=== PATIENT | female | born 1940 | race Caucasian/White ===

== ENCOUNTER 2020-02-06 07:00 | Outpatient (CLI) | payer SELFPAY | END 2020-02-06 23:59 | disposition home or self-care (01) | LOC: COV 07:00 | PROVIDERS: ATTEND Family Medicine | DX: Z20.828 Contact with and (suspected) exposure to other viral communicable diseases (principal) ==

== ENCOUNTER 2022-03-24 10:41 | Outpatient (CLI) | payer MEDICARE, OTHER ==
[2022-03-24 11:32] VITALS: BP 110/62
--- NOTE | 2022-03-24 11:32 | SLEEP CARE CONSULTATION ---
Information from patient questionnaire entered by Loren Carrero. I have reviewed and concur with the information entered by Loren Carrero. This document represents the service I personally performed and the decisions made by me, Mayi Trotter ARNP. History of Present Illness Service Date and Time: 03/24/2022 1041 Previous diagnosis: Moderate, Obstructive Sleep Apnea-Hypopnea Syndrome AHI: 29.4 (in 2021) Reason for follow up: first compliance Accompanied by: Spouse (Jason) Equipment type: CPAP (RESMED) Equipment obtained from: Other ([facility]; getting supplies) Mask style: Nasal Mask brand: Respironics (Dreamwear) Backup mask available: Yes (other mask; full face - created sore on top of nose) Prior sleep studies: Yes Type of Sleep Study: Polysomnography (F/U POLY, 11/26/2021, POS) HPI additional information: CHARITY AYON was diagnosed to have moderate, AHI 29.4, obstructive sleep apnea- hypopnea syndrome and returned today for CPAP therapy first compliance follow- up. Sleep Study - Results Type of Sleep Study: Polysomnography (F/U POLY, 11/26/2021, POS) Prior sleep studies: Yes CPAP Compliance Data - Data Reviewed with Patient Average duration of nightly device use: 5 hours 42 mins Compliance rate %: 73 (30/30 days used) Current pressure setting (cmH2O): 4-15 (median 10.0, avg 12.6, max 13.5) Average residual AHI: 4.1 Central apnea: 0.8 Obstructive apnea: 0.8 Average large leak: 5.0 lpm Subjective Missed days of use due to: reports: mask issues Patient concerns: reports: mask discomfort, mask leak noise, dry mouth, nose, throat. denies: aerophagia, air blowing in eyes, condensation in mask/hose, nasal congestion, epistaxis Observed to snore while using device: No Current pressure setting perceived as: too high On therapy, patient: reports: sleeping better, being more awake and alert during the day. denies: drowsiness while driving Initial [place] Sleepiness Scale score: 7 (11/20/2021) Current [place] Sleepiness Scale score: 6 (03/24/2022) Allergies and Home Medications Drug allergies reviewed: Yes (flagyl) Home medication list reviewed: Yes (no changes) Review of Systems Review of systems same as previous: Yes (no changes) Physical Exam Vital signs obtained and entered by: LOREN Amezquita MA Blood Pressure: 110/62 Heart Rate: 78 O2 Saturation: 95 Height: 4 ft 11 in Weight: 146 lb Body Mass Index: 29.5 BMI Classification: Overweight Impression and Plan 1. Obstructive Sleep Apnea-Hypopnea Syndrome, moderate, with good treatment compliance and good apnea control. On CPAP therapy, the patient has better sleep quality and is more rested overall. Patient has tried full face mask like the ResMed F20 but it caused a sore on the bridge of her nose. She switched to a nasal cushion but was not able to keep her mouth from opening. She would get a very dry mouth. She has tried a chin strap with the nasal cushion mask for a couple of nights. I advised her that she could try a hybrid full face mask and she thinks she may have one. She will continue to try to find a good fitting mask. The patients pressure will be changed to autoCPAP 10-12 cmH20 to reflect pressures being used. Patient advised to contact me if pressure change is uncomfortable so that it can be adjusted. Goals for apnea control discussed. Patient's apnea severity and rationale for treatment to reduce apnea, improve sleep quality and reduce cardiovascular and cerebrovascular events was reviewed. I also reviewed the benefit of consistent device use of CPAP for hypertension and anxiety. 2. Obesity, unspecified. Currently patients BMI is 29.5. Obesity increases the risk of apnea, CPAP pressure requirements and overall health risks especially cardiovascular and diabetes. Thus patient is advised to lose weight. * Change auto CPAP pressure to 10-12 cmH2O * Notify me if snoring with mask or feeling that the pressure is too much or too little * Attempt to lose weight * Call this office if any problems using CPAP * Return for follow up in 1-2 months, or sooner if concerns arise Counseling Topics: Spare mask, Weight loss health impact Visit Type: In Office Other Participants: Spouse/Significant Other Time Spent with Patient (minutes): 23 Provider Statement: I spent 100% of the Face to Face Visit with the patient with greater than 50% spent counseling the patient and coordination of care.
== END 2022-03-24 10:42 | disposition home or self-care (01) ==
LOC: SC 10:41
PROVIDERS: ATTEND Nurse Practitioner Family
DX: G47.33 Obstructive sleep apnea (adult) (pediatric) (principal); E66.9 Obesity, unspecified; Z68.29 Body mass index [BMI] 29.0-29.9, adult
CPT/HCPCS: 99213; G0463; 99212

== ENCOUNTER 2022-07-28 11:04 | Outpatient (CLI) | payer MEDICARE, OTHER ==
[2022-07-28 11:46] VITALS: BP 138/74
--- NOTE | 2022-07-28 11:46 | SLEEP CARE CONSULTATION ---
Information from patient questionnaire entered by Loren Carrero. I have reviewed and concur with the information entered by Loren Carrero. This document represents the service I personally performed and the decisions made by me, Mayi Trotter ARNP. History of Present Illness Service Date and Time: 07/28/2022 1104 Previous diagnosis: Moderate, Obstructive Sleep Apnea-Hypopnea Syndrome AHI: 29.4 (in 2021) Reason for follow up: three month Equipment type: CPAP (RESMED Airsense 11, s/u 01/2022) Equipment obtained from: Other ([facility]; getting supplies) Mask style: Full face Mask brand: Resmed (AirTouch F20) Backup mask available: Yes (other mask) Last cushion change: 3 nights Prior sleep studies: Yes Type of Sleep Study: Polysomnography (F/U POLY, 11/26/2021, POS) HPI additional information: JOIE AYON was diagnosed to have moderate, AHI 29.4, obstructive sleep apnea- hypopnea syndrome and returned today for CPAP therapy three month follow-up. Sleep Study - Results Type of Sleep Study: Polysomnography (F/U POLY, 11/26/2021, POS) Prior sleep studies: Yes CPAP Compliance Data - Data Reviewed with Patient Average duration of nightly device use: 6 HRS 44 MINS Compliance rate %: 87 (04/27/22-07/25/22; 90/90 days used) Current pressure setting (cmH2O): 10-12 Average residual AHI: 2.5 Central apnea: 0.3 Obstructive apnea: 0.2 Hypopnea: 1.9 Average large leak: 1.0 lpm Subjective Patient concerns: reports: mask discomfort (changing mask as needed), mask leak noise (best if on her back), dry mouth, nose, throat (using full face mask now or chin strap with nasal cushion). denies: aerophagia, air blowing in eyes, condensation in mask/hose, nasal congestion, epistaxis Observed to snore while using device: No Current pressure setting perceived as: comfortable On therapy, patient: reports: sleeping better, awakening more refreshed, being more awake and alert during the day, more rested overall. denies: drowsiness while driving Initial [place] Sleepiness Scale score: 7 (11/20/2021) Current [place] Sleepiness Scale score: 4 (07/28/22) Allergies and Home Medications Known drug allergies: Yes (Flagyl) Drug allergies reviewed: Yes Home medication list reviewed: Yes (no changes) Review of Systems Review of systems same as previous: No (Laser surgery on Left eye for glaucoma) Physical Exam Vital signs obtained and entered by: LOREN Amezquita MA Blood Pressure: 138/74 (LEFT ARM) Cuff size: regular Heart Rate: 76 O2 Saturation: 98 Height: 4 ft 11 in Weight: 147 lb 6.4 oz Body Mass Index: 29.7 BMI Classification: Overweight Impression and Plan 1. Obstructive Sleep Apnea-Hypopnea Syndrome, moderate, with good treatment compliance and good apnea control. On CPAP therapy, the patient has better sleep quality and is more rested overall. She is using a full face mask with memory foam to reduce irritation on top of nose. She states it is still causing redness on her nose after using it for only 3 nights. She states she really likes her nasal cushion mask but could not keep her mouth closed and was getting dry mouth. I showed her a ResMed Airfit F30i mask that is a hybrid of nasal cushion and full face. She liked it and will talk to her DME about when she may try this mask. We will follow up with Joie in about 6 months. Patient's apnea severity and rationale for treatment to reduce apnea, improve sleep quality and reduce cardiovascular and cerebrovascular events was reviewed. I also reviewed the benefit of consistent device use of CPAP for hypertension and anxiety. 2. Overweight, unspecified. Currently patients BMI is 29.7. Obesity increases the risk of apnea, CPAP pressure requirements and overall health risks especially cardiovascular and diabetes. Thus patient is advised to lose weight. The patient's CPAP pressure range should accommodate some weight loss. * Continue auto CPAP pressure at 10-12 cmH2O * Notify me if snoring with mask or feeling that the pressure is too much or too little * Attempt to lose weight * Call this office if any problems using CPAP * Return for follow up in 6 months, or sooner if concerns arise Counseling Topics: Spare mask, Weight loss health impact Visit Type: In Office Time Spent with Patient (minutes): 21 Provider Statement: I spent 100% of the Face to Face Visit with the patient with greater than 50% spent counseling the patient and coordination of care.
== END 2022-07-28 11:05 | disposition home or self-care (01) ==
LOC: SC 11:04
PROVIDERS: ATTEND Nurse Practitioner Family
DX: G47.33 Obstructive sleep apnea (adult) (pediatric) (principal); E66.3 Overweight; Z68.29 Body mass index [BMI] 29.0-29.9, adult
CPT/HCPCS: 99213; G0463; 99212

== ENCOUNTER 2022-09-24 10:25 | Outpatient (CLI) | payer MEDICARE, OTHER ==
--- NOTE | 2022-09-24 13:05 | XRAY Report ---
PROCEDURE: Foot 3 View BILAT INDICATIONS: BL FOOT PAIN TECHNIQUE: 3 views of the bilateral feet were acquired. COMPARISON: None. FINDINGS: Bones: No fractures or dislocations. No suspicious bony lesions. Bilateral pes planus and promine nt hallux valgus and bunion. Bilateral first MTP degenerative change, moderately severe. There are ca lcifications medial to the distal heads of the first metatarsals. Gout is not excluded. There are geovany ntar calcaneal spurs as well as bilateral midfoot degenerative change. Soft tissues: No suspicious soft tissue calcifications or masses. IMPRESSION: 1. Bilateral pes planus, prominent hallux valgus and bunion. 2. 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 3. Question gout. 4. Plantar calcaneal spurring. 5. Midfoot degenerative arthritis. Reviewed by: Vj Valentino MD on 09/24/2022 1:04 PM PDT Approved by: Vj Valentino MD on 09/24/2022 1:04 PM PDT Station ID: [id number]
== END 2022-09-24 10:26 | disposition home or self-care (01) ==
LOC: DI 10:25
PROVIDERS: ATTEND Podiatrist
DX: M21.42 Flat foot [pes planus] (acquired), left foot (principal); M21.41 Flat foot [pes planus] (acquired), right foot; M20.12 Hallux valgus (acquired), left foot; M20.11 Hallux valgus (acquired), right foot; M21.612 Bunion of left foot; M21.611 Bunion of right foot; M19.072 Primary osteoarthritis, left ankle and foot; M19.071 Primary osteoarthritis, right ankle and foot; M77.32 Calcaneal spur, left foot; M77.31 Calcaneal spur, right foot

== ENCOUNTER 2023-01-27 10:59 | Outpatient (CLI) | payer MEDICARE, OTHER ==
--- NOTE | 2023-01-27 11:43 | Sleep Patient Instructions ---
Sleep Center Visit Summary - Patient Visit Information Reason for Visit: 6 month followup for PAP therapy - Patient Instructions Additional Instructions: You were here for follow up of CPAP therapy. You will be continued on CPAP therapy with pressure at 10-12 cmH2O. You should follow up with sleep care in 12 months. You may contact us sooner for any questions or concerns. - Clinic Information Contact: formerly [facility] [address] [place] [address] [email or web address] T: [phone]
--- NOTE | 2023-01-27 11:51 | SLEEP CARE CONSULTATION ---
Information from patient questionnaire entered by Robert Carrero. I have reviewed and concur with the information entered by Robert Carrero. This document represents the service I personally performed and the decisions made by , Mayi Trotter ARNP. History of Present Illness Service Date and Time: 01/27/2023 1059 Previous diagnosis: Moderate, Obstructive Sleep Apnea-Hypopnea Syndrome AHI: 29.4 (in 2021) Reason for follow up: six month (F/U) Equipment type: CPAP (RESMED Airsense 11, s/u 01/2022) Equipment obtained from: Other ([facility]; getting supplies) Mask style: Nasal Mask brand: Resmed (N30i) Backup mask available: Yes (other mask) Last cushion change: 3-4 weeks Prior sleep studies: Yes Type of Sleep Study: Polysomnography (F/U POLY, 11/26/2021, POS) HPI additional information: CHARITY AYON was diagnosed to have moderate, AHI 29.4, obstructive sleep apnea- hypopnea syndrome and returned today for CPAP therapy six month follow-up. Sleep Study - Results Type of Sleep Study: Polysomnography (F/U POLY, 11/26/2021, POS) Prior sleep studies: Yes CPAP Compliance Data - Data Reviewed with Patient Average duration of nightly device use: 7 HRS 3 MINS Compliance rate %: 96 (07/29/22-01/24/23; 179/180 days used) Current pressure setting (cmH2O): 10-12 Average residual AHI: 2.0 Central apnea: 1 Obstructive apnea: 0.6 Hypopnea: 0.4 Average large leak: 0.3 L/min Subjective Patient concerns: reports: dry mouth, nose, throat (occasionally; using chin strap with mask to reduce oral venting). denies: aerophagia, mask discomfort, air blowing in eyes, mask leak noise, condensation in mask/hose, nasal congestion, epistaxis Observed to snore while using device: No Current pressure setting perceived as: comfortable On therapy, patient: reports: sleeping better, awakening more refreshed, being more awake and alert during the day, more rested overall. denies: drowsiness while driving Initial [place] Sleepiness Scale score: 7 (11/20/2021) Current [place] Sleepiness Scale score: 5 (01/27/23) Allergies and Home Medications Known drug allergies: Yes (as listed) Drug allergies reviewed: Yes Home medication list reviewed: Yes (no changes) Allergy and home medication list: Allergies metronidazole [From Flagyl] Adverse Reaction (Verified 01/26/23 14:22) Cramps Review of Systems Review of systems same as previous: Yes (NO CHANGE) Physical Exam Vital signs obtained and entered by: ROBERT Amezquita MA Blood Pressure: 116/64 (LEFT ARM) Cuff size: regular Heart Rate: 70 O2 Saturation: 98 Height: 4 ft 11 in Weight: 144 lb 9.6 oz Body Mass Index: 29.2 BMI Classification: Overweight Impression and Plan 1. Obstructive Sleep Apnea-Hypopnea Syndrome, moderate, with good treatment compliance and good apnea control. On CPAP therapy, the patient has better sleep quality and is more rested overall. She has settled on a nasal cushion mask that she finds the most comfortable. She is using a chinstrap to keep her mouth closed but does not like it. I suggested she try mouth strip for snoring to keep mouth closed and she voiced understanding. Patient has significant improvement of their sleep apnea and is satisfied with current CPAP therapy. Patient denies problems with nasal congestion, epistaxis, skin irritation or aerophagia. Patient's apnea severity and rationale for treatment to reduce apnea, improve sleep quality and reduce cardiovascular and cerebrovascular events was reviewed. I also reviewed the benefit of consistent device use of CPAP for hypertension and anxiety. 2. Overweight, unspecified. Currently patients BMI is 29.2. Obesity increases the risk of apnea, CPAP pressure requirements and overall health risks especially cardiovascular and diabetes. Thus patient is advised to lose weight. * Continue auto CPAP pressure at 10-12 cmH2O * Notify me if snoring with mask or feeling that the pressure is too much or too little * Attempt to lose weight * Call this office if any problems using CPAP * Return for follow up in 1 year, or sooner if concerns arise Counseling Topics: Spare mask, Weight loss health impact Prescriptions: Device supplies Follow up with Sleep Care in: 1 year Visit Type: In Office Time Spent with Patient (minutes): 23 Provider Statement: I spent 100% of the Face to Face Visit with the patient with greater than 50% spent counseling the patient and coordination of care.
[2023-01-27 12:08] VITALS: BP 116/64; O2SAT 98
== END 2023-01-27 11:00 | disposition home or self-care (01) ==
LOC: SC 10:59
PROVIDERS: ATTEND Nurse Practitioner Family
DX: G47.33 Obstructive sleep apnea (adult) (pediatric) (principal); E66.3 Overweight; Z68.29 Body mass index [BMI] 29.0-29.9, adult
CPT/HCPCS: 99213; G0463; 99212

== ENCOUNTER 2023-12-13 06:30 | Outpatient (CLI) | payer MEDICARE, OTHER | END 2023-12-13 23:59 | disposition critical access hospital (66) | LOC: EMS 06:30 | DX: R07.89 Other chest pain (principal) | CPT/HCPCS: A0425; A0427 ==

== ENCOUNTER 2023-12-13 06:59 | Emergency (ER) | payer MEDICARE, OTHER ==
[2023-12-13 07:23] VITALS: O2SAT 98
[2023-12-13 07:30] LABS: BASOPHILS % (AUTO) 0.4 %; EOSINOPHILS # (AUTO) 0.1 10^3/uL (0.0-0.7); HCT - HEMATOCRIT 43.5 % (37.0-47.0); HGB - HEMOGLOBIN 14.2 g/dL (12.0-16.0); LYMPHOCYTES # (AUTO) 1.5 10^3/uL (1.5-3.5); LYMPHOCYTES % (AUTO) 21.7 %; MEAN CORPUSCULAR HEMOGLOBIN 30.2 pg (27.0-31.0); MEAN CORPUSCULAR HGB CONC 32.6 g/dL (32.0-36.0); MEAN CORPUSCULAR VOLUME 92.6 fL (81.0-99.0); MEAN PLATELET VOLUME 12.7 fL (7.9-10.8); MONOCYTES # (AUTO) 0.9 10^3/uL (0.0-1.0); MONOCYTES % (AUTO) 13.4 %; NEUTROPHILS # (AUTO) 4.3 10^3/uL (1.5-6.6); NEUTROPHILS % (AUTO) 62.4 %; PLT - PLATELET COUNT 179 10^3/uL (130-450); RED CELL DISTRIBUTION WIDTH 13.2 % (12.0-15.0); WHITE BLOOD COUNT 6.9 x10^3/uL (4.8-10.8)
--- NOTE | 2023-12-13 07:30 | ED Physician Documentation ---
PD HPI CHEST PAIN - Stated complaint Stated Complaint: CHEST PX - Chief complaint Chief Complaint: Cardiac - History obtained from History obtained from: Patient, EMS - Additional information Additional information: 82-year-old woman with history of hypertension hypercholesterolemia with no history of known coronary disease presents to the evaluation of chest pain. She had a large meal last night and was awoken at 410 this morning by sharp intermittent nonexertional chest pain that is anterior nonradiating. She is pain-free as we speak. No pedal edema, calf pain, sweats, nausea, shortness of breath. Pain lasts seconds to minutes at a time. She is under a lot of stress mostly revolving around her demented alcoholic and family out of town. PD PAST MEDICAL HISTORY - Past Medical History Past Medical History: Yes Cardiovascular: Hypertension Respiratory: None Endocrine/Autoimmune: HyPOthyroidism Psych: None Musculoskeletal: Osteoarthritis, Osteoporosis - Past Surgical History Past Surgical History: Yes Ortho: Rotator cuff repair /STAINED GLASS JOINER: Oophrectomy HEENT: Tonsil/Adenoidectomy - Present Medications Home Medications: Ambulatory Orders Medication Instructions Recorded Confirmed Ascorbic Acid [Vitamin C] See Rx Instructions .ROUTE .COMPLEX 07/26/13 01/27/23 Aspirin EC [Ecotrin] See Rx Instructions .ROUTE .COMPLEX 07/26/13 01/27/23 Calcium Carbonate [Calcium] See Rx Instructions .ROUTE .COMPLEX 07/26/13 01/27/23 Felodipine [Felodipine ER] See Rx Instructions .ROUTE .COMPLEX 07/26/13 01/27/23 Levothyroxine Sodium [Synthroid] See Rx Instructions .ROUTE .COMPLEX 07/26/13 01/27/23 Losartan [Cozaar] See Rx Instructions .ROUTE .COMPLEX 07/26/13 01/27/23 Multivitamin [Multivitamins] See Rx Instructions .ROUTE .COMPLEX 07/26/13 01/27/23 [place]-3/Dha/Epa/Fish Oil [Fish Oil] See Rx Instructions .ROUTE .COMPLEX 07/26/13 01/27/23 Simvastatin See Rx Instructions .ROUTE .COMPLEX 07/26/13 01/27/23 Vitamin B Complex Vit C No.4 See Rx Instructions .ROUTE .COMPLEX 07/26/13 01/27/23 [Super B Complex] hydroCHLOROthiazide See Rx Instructions .ROUTE .COMPLEX 07/26/13 01/27/23 [Hydrochlorothiazide] - Allergies Allergies/Adverse Reactions: Allergies Allergy/AdvReac Type Severity Reaction Status Date / Time metronidazole [From Flagyl] AdvReac Cramps Verified 12/13/23 07:05 - Social History Does the pt smoke?: No Smoking Status: Never smoker Does the pt drink ETOH?: No Does the pt have substance abuse?: No - Immunizations Immunizations are current?: Yes - POLST Patient has POLST: No PD ED PE NORMAL - Vitals Vital signs reviewed: Yes - General General: Alert and oriented X 3, No acute distress - Cardiac Cardiac: RRR, No murmur - Respiratory Respiratory: No respiratory distress, Clear bilaterally - Abdomen Abdomen: Non tender - Extremities Extremities: No edema, No calf tenderness / cord - Neuro Neuro: Alert and oriented X 3, Normal speech Results - Vitals Vitals: Vital Signs - 24 hr 12/13/23 12/13/23 07:05 09:10 Temperature 36.6 C Heart Rate 75 57 L Respiratory 16 17 Rate Blood Pressure 157/94 H 151/77 H O2 Saturation 98 98 Oxygen O2 Source Room air - EKG (time done) 0705 EKG releavant findings:: EKG personally interpreted by author of this note. Relevant findings are: Rate: Rate (enter#) (57) Rhythm: NSR [place]: Normal Intervals: Normal MI QRS: Normal Ischemia: Q waves (Q waves anteriorly and inferiorly. No priors for comparison.). No: ST elevation c/w ischemia, ST depression Computer interpretation: Agree with computer - Labs Labs: Laboratory Tests 12/13/23 12/13/23 12/13/23 07:00 07:00 07:53 WBC 6.9 RBC 4.70 Hgb 14.2 Hct 43.5 MCV 92.6 MCH 30.2 MCHC 32.6 RDW 13.2 Plt Count 179 MPV 12.7 H Neut # (Auto) 4.3 Lymph # (Auto) 1.5 [place] # (Auto) 0.9 Eos # (Auto) 0.1 Baso # (Auto) 0.0 Absolute Nucleated RBC 0.00 Nucleated RBC % 0.0 Manual Slide Review Indicated Platelet Estimate NORMAL (130-450,000) Sodium 136 Potassium 3.6 Chloride 102 Carbon Dioxide 26 Anion Gap 8.0 BUN 31 H Creatinine 0.8 Estimated GFR (MDRD) 69 L Glucose 100 Calcium 10.0 Total Bilirubin 0.5 AST 21 ALT 14 Alkaline Phosphatase 54 Troponin I High Sens 7.3 Total Protein 7.1 Albumin 4.2 Globulin 2.9 Albumin/Globulin Ratio 1.4 Lipase 50 12/13/23 09:21 WBC RBC Hgb Hct MCV MCH MCHC RDW Plt Count MPV Neut # (Auto) Lymph # (Auto) [place] # (Auto) Eos # (Auto) Baso # (Auto) Absolute Nucleated RBC Nucleated RBC % Manual Slide Review Platelet Estimate Sodium Potassium Chloride Carbon Dioxide Anion Gap BUN Creatinine Estimated GFR (MDRD) Glucose Calcium Total Bilirubin AST ALT Alkaline Phosphatase Troponin I High Sens 7.9 Total Protein Albumin Globulin Albumin/Globulin Ratio Lipase - Rads (name of study) 1v cxr- cardiomegaly, NAD Relevant Findings:: Final report received, EMP independent interpretation of test PD Medical Decision Making - ED course ED course: 82-year-old woman with acute atypical nonexertional intermittent chest pain. EKG nonischemic. She states she had cardiac workup earlier this year with Holter and echo that was unremarkable. No stress. She was pain-free on arrival. CBC unremarkable. CMP showing mild prerenal azotemia, troponin negative/normal. Will repeat troponin at the 2-hour romaine. Repeat troponin without significant change. Departure - Departure Disposition: 01 Home, Self Care Clinical Impression: Chest pain Qualifiers: Chest pain type: unspecified Qualified Code(s): R07.9 - Chest pain, unspecified Condition: Good Record reviewed to determine appropriate education?: Yes Instructions: ED Chest Pain Atypical Unkn Cause Comments: Call your doctor to arrange a follow-up appointment, make the next available appointment. In the interim, return anytime if worse or if new symptoms develop. Forms: PCP List Discharge Date/Time: 12/13/23 10:07
[2023-12-13 07:31] LABS: SLIDE REVIEW? Indicated
[2023-12-13 07:49] LABS: PLATELET ESTIMATE, MANUAL NORMAL (130-450,000) (NORMAL)
--- NOTE | 2023-12-13 08:01 | XRAY Report ---
PROCEDURE: Chest 1V INDICATIONS: Chest pain TECHNIQUE: One view of the chest was acquired. COMPARISON: None. FINDINGS: Surgical changes and devices: Right shoulder anchors. Metallic object at the left humerus likely a s urgical anchor. Right breast clips. Lungs and pleura: No pleural effusions or pneumothorax. Lungs are clear. Mediastinum: Mediastinal contours appear normal. Calcified plaque at the aortic arch. Heart size is prominent. Bones and chest wall: No suspicious bony lesions. Overlying soft tissues appear unremarkable. IMPRESSION: No acute cardiopulmonary process. Heart size appears enlarged. Reviewed by: John Cali MD on 12/13/2023 7:59 AM PDT Approved by: John Cali MD on 12/13/2023 7:59 AM PDT Station ID: [id number]
[2023-12-13 08:15] LABS: ALBUMIN 4.2 g/dL (3.2-5.5); ALBUMIN/GLOBULIN RATIO 1.4 (1.0-2.2); BILIRUBIN,TOTAL 0.5 mg/dL (0.2-1.0); CREATININE 0.8 mg/dL (0.6-1.3); POTASSIUM 3.6 mmol/L (3.5-4.5); TOTAL PROTEIN 7.1 g/dL (6.4-8.9)
[2023-12-13 09:38] VITALS: BP 151/77
== END 2023-12-13 10:07 | disposition home or self-care (01) ==
LOC: EDUNIT# → EDBD → ED 06:59
DX: R07.9 Chest pain, unspecified (principal)
CPT/HCPCS: 36415; 80053; 83690; 84484; 85025; 93005; 99283; 99284